=== PATIENT | female | born 1990 | race Caucasian/White ===

== ENCOUNTER 2021-05-28 20:40 | Inpatient (IN) ==
[2021-05-28] MEDS ORDERED: Metoclopramide 10 MG/2 ML VIAL IVP PRN (22:08)
[2021-05-28] MEDS ORDERED: Ondansetron 4 MG/2 ML VIAL IVP PRN (22:08)
[2021-05-28] MEDS ORDERED: Naloxone 0.4 MG/ML INJ IVP PRN (22:08)
[2021-05-28] MEDS ORDERED: Famotidine 20 MG/2 ML VIAL IVP PRN (22:08)
[2021-05-28] MEDS ORDERED: Azithromycin 500 MG in 0.9 % Sodium Chloride 250 ML IVPB PRN (22:08)
[2021-05-28] MEDS ORDERED: Penicillin G Potassium 5,000,000 UNIT in 0.9 % Sodium Chloride Mini Bag 100 ML IVPB ONE (22:08)
[2021-05-28] MEDS ORDERED: *HR* Nalbuphine 10 MG/ML AMPUL IV PRN (22:08)
[2021-05-28] MEDS ORDERED: Lidocaine 1% 20 ML MDV INFILT PRN (22:08)
[2021-05-28] MEDS ORDERED: Ringers Solution, Lactated 1,000 ML IVC SCH (22:15)
[2021-05-28] MEDS ORDERED: Oxytocin 20 units/ LR 1000 mL 20 UNIT/1,000 ML BAG IVC SCH (22:30)
[2021-05-28 22:50] LABS: Basophils % 0.1 %; Eosinophils % 0.2 %; Hematocrit 38.6 % (35.3-44.9); Hemoglobin 12.5 g/dL (11.5-15.4); Immature Granulocytes % 0.5 % (0-4); Lymphocytes # 1.1 K/mcL (0.6-4.6); Lymphocytes % 7.5 %; Mean Corpuscular HGB Conc 32.4 g/dL (31.6-35.5); Mean Corpuscular Hemoglobin 28.9 pg (28.0-33.3); Mean Corpuscular Volume 89.1 fL (83.0-100.0); Mean Platelet Volume 11.6 fL (9.4-12.4); Monocytes # 1.2 K/mcL (0.0-1.3); Monocytes % 7.9 %; Neutrophils # 12.6 K/mcL (1.6-8.9); Platelet Count 145 K/mcL (140-400); Red Blood Count 4.33 M/mcL (3.82-4.97); Red Cell Distribution Width 13.1 % (11.5-14.5); Segmented Neutrophils % 83.8 %; White Blood Count 15.1 K/mcL (4.3-11.1)
[2021-05-28 22:58] LABS: Amphetamine Screen,Urine Negative ng/mL (Cutoff=1000); Barbiturate Screen,Urine Negative ng/mL (Cutoff=200); Benzodiazepines Screen,Urine Negative ng/mL (Cutoff=200); Cannabinoid Screen,Urine Negative ng/mL (Cutoff = 50); Cocaine Screen,Urine Negative ng/mL (Cutoff= 300); Opiate Screen,Urine Negative ng/mL (Cutoff=300); Phencyclidine Screen,Urine Negative ng/mL (Cutoff=25)
[2021-05-28 23:21] LABS: Influenza A PCR Negative (Negative); Influenza B PCR Negative (Negative); Resp. Syncytial Virus PCR Negative (Negative)
[2021-05-28 23:22] LABS: SARS-CoV-2 by PCR (In House) Negative (Negative)
[2021-05-29] MEDS ORDERED: Penicillin G Potassium 2,500,000 UNIT/105 ML MLS IVPB SCH
[2021-05-29] MEDS ORDERED: Ropivacaine/PF 0.2% 20 ML VIAL EP ONE (00:05)
[2021-05-29] MEDS ORDERED: EPHEDrine 50 MG/ML VIAL IVP PRN (00:05)
[2021-05-29] MEDS ORDERED: *HR* FentaNYL (PF) 100 MCG/2 ML VIAL EP ONE (00:05)
[2021-05-29] MEDS ORDERED: Epidural Premix (fent/bupiv) 110 ML EP ONE (00:07)
[2021-05-29] MEDS ORDERED: Epidural Premix (fent/bupiv) 110 ML EP SCH (00:15)
[2021-05-29] MEDS ORDERED: Acetaminophen 325 MG TABLET PO PRN (12:39)
[2021-05-29] MEDS ORDERED: Lanolin 7 G OINT...G. TP PRN (12:39)
[2021-05-29] MEDS ORDERED: Benzocaine/Menthol 56 GM AEROSOL SPRAY TP PRN (12:39)
[2021-05-29] MEDS ORDERED: Measles/Mumps/Rubella Vacc 0.5 ML VIAL SQ PRN (12:39)
[2021-05-29] MEDS ORDERED: Oxytocin 20 units/ LR 1000 mL 20 UNIT/1,000 ML BAG IVC SCH (12:39)
[2021-05-29] MEDS ORDERED: *HR* HYDROcodone/Acet 5/325 mg TABLET PO PRN (12:39)
[2021-05-29] MEDS: Ibuprofen 600 MG TABLET PO PRN (15:52)
[2021-05-30 06:54] LABS: Basophils % 0.2 %; Eosinophils # 0.1 K/mcL (0.0-0.6); Eosinophils % 0.9 %; Hematocrit 29.9 % (35.3-44.9); Immature Granulocytes % 0.7 % (0-4); Lymphocytes # 1.6 K/mcL (0.6-4.6); Lymphocytes % 11.9 %; Mean Corpuscular HGB Conc 33.1 g/dL (31.6-35.5); Mean Corpuscular Hemoglobin 29.4 pg (28.0-33.3); Mean Corpuscular Volume 88.7 fL (83.0-100.0); Mean Platelet Volume 10.8 fL (9.4-12.4); Monocytes # 1.3 K/mcL (0.0-1.3); Monocytes % 9.5 %; Neutrophils # 10.3 K/mcL (1.6-8.9); Platelet Count 106 K/mcL (140-400); Red Blood Count 3.37 M/mcL (3.82-4.97); Red Cell Distribution Width 13.4 % (11.5-14.5); Segmented Neutrophils % 76.8 %; White Blood Count 13.4 K/mcL (4.3-11.1)
[2021-05-30 07:01] LABS: Hemoglobin 9.9 g/dL (11.5-15.4)
[2021-05-30] MEDS: Ibuprofen 600 MG TABLET PO PRN (08:11)
[2021-05-30 08:27] VITALS: BP 117/79; PULSE 112; TEMP 98.5; O2SAT 95
[2021-05-30] MEDS ORDERED: Prenatal Vit/FA 1 EACH TABLET PO SCH (09:00)
== END 2021-05-30 13:38 | disposition home or self-care (01) | DRG 806 ==
LOC: 1NENULAB → 1NENUOBS 05-29 13:23
PROVIDERS: ADMIT Obstetrics & Gynecology; ATTEND Obstetrics & Gynecology